=== PATIENT | male | born 1950 | race Hispanic/Latino ===

== ENCOUNTER 2018-07-16 22:45 | Emergency (ER) | payer OTHER ==
[2018-07-16] MEDS ORDERED: LIDOCAINE 1% 20 ML MDV ONE (23:12)
[2018-07-16] MEDS ORDERED: BUPIVACAINE 0.5% PF 10 ML VIAL ONE (23:12)
--- NOTE | 2018-07-17 00:15 | ER ---
[facility] Name: Ravinder Townsend Age: 67 yrs Sex: Male : 1950 Arrival Date: 07/16/2018 Time: 22:47 Bed 4 Private MD: Diagnosis: Laceration without foreign body of right hand-right ring finger tissue avulsion Presentation: 07/16 22:56 Presenting complaint: Patient states: "I was at the cook off and I was helping with a jd3 big truck and the back sliding door came down onto my finger.". Transition of care: patient was not received from another setting of care. Onset of symptoms was July 16, 2018. Risk Assessment: Do you want to hurt yourself or someone else? Patient reports no desire to harm self or others. Initial Sepsis Screen: Does the patient meet any 2 criteria? No. Patient's initial sepsis screen is negative. Does the patient have a suspected source of infection? No. Patient's initial sepsis screen is negative. Care prior to arrival: None. 22:56 Method Of Arrival: Ambulatory [facility] 22:56 Acuity: ANY 3 jd3 23:00 Note pt reported drinking 5-6 beers tonight. jd3 Triage Assessment: 23:11 Injury Description: Crush injury sustained to right hand is macerated right middle ak1 finger with laceration, bleeding controlled. was sustained 30-60 minutes ago. Historical: - Allergies: 22:59 GABAPENTIN; jd3 - Home Meds: 22:59 aspirin 81 mg Oral chew [Active]; jd3 - PMHx: 22:59 Cancer; jd3 - PSHx: 22:59 colon; stents in leg; jd3 - Immunization history:: Adult Immunizations up to date, Last tetanus immunization: < 5 years ago. - Social history:: Smoking status: Patient/guardian denies using tobacco, but has a distant history of tobacco abuse. - Ebola Screening: : Patient negative for fever greater than or equal to 101.5 degrees Fahrenheit, and additional compatible Ebola Virus Disease symptoms. Screenin:02 Abuse screen: Denies threats or abuse. Denies injuries from another. Nutritional ak1 screening: No deficits noted. Tuberculosis screening: No symptoms or risk factors identified. Fall Risk None identified. Assessment: 23:09 General: Appears uncomfortable, Behavior is calm, cooperative. Pain: Complains of pain ak1 in palmar aspect of distal phalanx of right ring finger and palmar aspect of distal phalanx of right middle finger Pain began 1 hour ago. Neuro: No deficits noted. Cardiovascular: No deficits noted. Respiratory: No deficits noted. GI: No signs and/or symptoms were reported involving the gastrointestinal system. : No signs and/or symptoms were reported regarding the genitourinary system. EENT: No signs and/or symptoms were reported regarding the EENT system. Derm: Wound noted palmar aspect of distal phalanx of right ring finger and palmar aspect of distal phalanx of right middle finger. Musculoskeletal: Range of motion: intact in all extremities, wound with bruising to right middle and right ring fingers. pt with laceration to right middle finger, bleeding controlled. 07/17 00:29 Reassessment: Patient appears in no apparent distress at this time. No changes from ak1 previously documented assessment. Patient and/or family updated on plan of care and expected duration. Pain level reassessed. Patient is alert, oriented x 3, equal unlabored respirations, skin warm/dry/pink. pt with tube gauze placed to affect finger. pt informed to keep sutures clean and dry. Vital Signs: 07/16 22:59 BP 135 / 98; Pulse 97; Resp 17 S; Temp 98.0(O); Pulse Ox 100% on R/A; Weight 100.7 kg jd3 (R); Height 5 ft. 10 in. (177.80 cm) (R); Pain 10/10; 23:11 BP 116 / 83; Pulse 89; Resp 18; Temp 98; Pulse Ox 97% on R/A; ak1 22:59 Body Mass Index 31.85 (100.70 kg, 177.80 cm) jd3 ED Course: 22:47 Patient arrived in ED. am2 22:57 Triage completed. jd3 23:00 Arm band placed on. jd3 23:02 Мария Olivo, RN is Primary Nurse. ak1 23:09 Patient has correct armband on for positive identification. Bed in low position. Call ak1 light in reach. Side rails up X 1. Adult w/ patient. Pulse ox on. NIBP on. 23:14 Kevin Mcnulty MD is Attending Physician. [facility] 07/17 00:09 Jac Oakes MD is Referral Physician. agnes 00:14 Assist provider with laceration repair on right hand that was 2.5 cm. or less using ak1 sutures. Set up tray. Performed by Kevin Mcnulty MD Dressed with 4X4s, Kerlix, Neosporin, Patient tolerated well. Patient did not have IV access during this emergency room visit. 01:46 Hand Right 3 View XRAY In Process Unspecified. EDMS Administered Medications: 07/16 23:47 Drug: Marcaine (0.5 %) 1 vials {Note: at bedside for Dr. Mcnulty .} Volume: 10 ml; ak1 Route: Infiltration; 23:47 Drug: Lidocaine (1 %) 1 vials {Note: at bedside for Dr. Mcnulty.} Volume: 20 ml; ak1 Route: Infiltration; 07/17 00:10 Drug: Neosporin Ointment 1 application Route: Topical; Site: affected area; ak1 00:10 Drug: [place] 10 mg-325 mg 1 tabs Route: PO; ak1 00:28 Follow up: Response: No adverse reaction ak1 00:13 Drug: Ancef 1 grams Route: IM; Site: left gluteus; ak1 00:28 Follow up: Response: No adverse reaction ak1 00:13 Drug: KeFLEX 500 mg Route: PO; ak1 00:28 Follow up: Response: No adverse reaction ak1 Outcome: 00:14 Discharge ordered by . [facility] 00:29 Discharged to home ambulatory, with family. ak1 00:29 Condition: good 00:29 Discharge instructions given to patient, family, Instructed on discharge instructions, follow up and referral plans. no drinking with medication, no driving heavy equipment, medication usage, wound care, Demonstrated understanding of instructions, follow-up care, medications, wound care, Prescriptions given X 2. 00:30 Patient left the ED. ak1 Signatures: Dispatcher [employer] EDMS Kevin Mcnulty MD MD cha Krenek, Amber RN RN ak1 Aury Rhoades Jonathon, RN RN [email or web address] Corrections: (The following items were deleted from the chart) 07/16 23:00 22:56 Presenting complaint: Patient states: "I was at the cook off and I was helping jd3 with a big truck and the back sliding door came down onto my finger." [place]
--- NOTE | 2018-07-17 00:16 | EDPHYS ---
Physician Documentation [facility] Name: Ravinder Townsend Age: 67 yrs Sex: Male : 1950 Arrival Date: 07/16/2018 Time: 22:47 Bed 4 Private MD: ED Physician Kevin Mcnulty HPI: 07/17 00:04 This 67 yrs old Male presents to ER via Ambulatory with complaints of Finger agnes Injury - laceration. 00:04 Trauma demographics: County: The injury occurred in [place]. Mechanism of injury: agnes Crush injury: from a car door. Associated injuries: The patient sustained right hand and palmar aspect of distal phalanx of right middle finger and palmar aspect of distal phalanx of right ring finger, decreased range of motion, laceration, painful injury, swelling. Onset: The symptoms/episode began/occurred just prior to arrival. The patient has not experienced similar symptoms in the past. Historical: - Allergies: 07/16 22:59 GABAPENTIN; jd3 - Home Meds: 22:59 aspirin 81 mg Oral chew [Active]; jd3 - PMHx: 22:59 Cancer; jd3 - PSHx: 22:59 colon; stents in leg; jd3 - Immunization history:: Adult Immunizations up to date, Last tetanus immunization: < 5 years ago. - Social history:: Smoking status: Patient/guardian denies using tobacco, but has a distant history of tobacco abuse. - Ebola Screening: : Patient negative for fever greater than or equal to 101.5 degrees Fahrenheit, and additional compatible Ebola Virus Disease symptoms. ROS: 07/17 00:05 Constitutional: Negative for fever, chills, and weight loss, Eyes: Negative for injury, agnes pain, redness, and discharge, ENT: Negative for injury, pain, and discharge, Neck: Negative for injury, pain, and swelling, Cardiovascular: Negative for chest pain, palpitations, and edema, Respiratory: Negative for shortness of breath, cough, wheezing, and pleuritic chest pain, Abdomen/GI: Negative for abdominal pain, nausea, vomiting, diarrhea, and constipation, Back: Negative for injury and pain, : Negative for injury, bleeding, discharge, and swelling, Skin: Negative for injury, rash, and discoloration, Neuro: Negative for headache, weakness, numbness, tingling, and seizure, Psych: Negative for depression, anxiety, suicide ideation, homicidal ideation, and hallucinations, Allergy/Immunology: Negative for hives, rash, and allergies, Endocrine: Negative for neck swelling, polydipsia, polyuria, polyphagia, and marked weight changes, Hematologic/Lymphatic: Negative for swollen nodes, abnormal bleeding, and unusual bruising. MS/extremity: Positive for decreased range of motion, pain, tenderness, of the right hand and palmar aspect of distal phalanx of right middle finger and palmar aspect of distal phalanx of right ring finger. Exam: 00:05 Constitutional: This is a well developed, well nourished patient who is awake, alert, agnes and in no acute distress. Head/Face: Normocephalic, atraumatic. Eyes: Pupils equal round and reactive to light, extra-ocular motions intact. Lids and lashes normal. Conjunctiva and sclera are non-icteric and not injected. Cornea within normal limits. Periorbital areas with no swelling, redness, or edema. ENT: Nares patent. No nasal discharge, no septal abnormalities noted. Tympanic membranes are normal and external auditory canals are clear. Oropharynx with no redness, swelling, or masses, exudates, or evidence of obstruction, uvula midline. Mucous membranes moist. Neck: Trachea midline, no thyromegaly or masses palpated, and no cervical lymphadenopathy. Supple, full range of motion without nuchal rigidity, or vertebral point tenderness. No Meningismus. Chest/axilla: Normal chest wall appearance and motion. Nontender with no deformity. No lesions are appreciated. Cardiovascular: Regular rate and rhythm with a normal S1 and S2. No gallops, murmurs, or rubs. Normal PMI, no JVD. No pulse deficits. Respiratory: Lungs have equal breath sounds bilaterally, clear to auscultation and percussion. No rales, rhonchi or wheezes noted. No increased work of breathing, no retractions or nasal flaring. Abdomen/GI: Soft, non-tender, with normal bowel sounds. No distension or tympany. No guarding or rebound. No evidence of tenderness throughout. Back: No spinal tenderness. No costovertebral tenderness. Full range of motion. Male : Normal genitalia with no discharge or lesions. Skin: Warm, dry with normal turgor. Normal color with no rashes, no lesions, and no evidence of cellulitis. Neuro: Awake and alert, GCS 15, oriented to person, place, time, and situation. Cranial nerves II-XII grossly intact. Motor strength 5/5 in all extremities. Sensory grossly intact. Cerebellar exam normal. Normal gait. Psych: Awake, alert, with orientation to person, place and time. Behavior, mood, and affect are within normal limits. 00:05 Musculoskeletal/extremity: Extremities: noted in the palmar aspect of distal phalanx of right ring finger: decreased ROM, deformity, laceration, pain, ROM: limited active range of motion due to pain, limited passive range of motion due to pain, Circulation is intact in all extremities. Sensation intact. Compartment Syndrome exam of affected extremity: is normal. ring finger , tissue missing. Vital Signs: 07/16 22:59 BP 135 / 98; Pulse 97; Resp 17 S; Temp 98.0(O); Pulse Ox 100% on R/A; Weight 100.7 kg jd3 (R); Height 5 ft. 10 in. (177.80 cm) (R); Pain 10/10; 23:11 BP 116 / 83; Pulse 89; Resp 18; Temp 98; Pulse Ox 97% on R/A; ak1 22:59 Body Mass Index 31.85 (100.70 kg, 177.80 cm) jd3 Laceration: 07/17 00:07 Wound Repair of 1.5cm ( 0.6in ) subcutaneous laceration to right hand and palmar aspect agnes of distal phalanx of right ring finger. Skin/tissue flap noted.. tissue missing. Distal neuro/vascular/tendon intact. Anesthesia: Digital block administered with 5 mls of 1% lidocaine, Local anesthetic administered with 5 mls of 0.5% marcaine. Wound prep: Moderate cleansing by me, Copious irrigation. Skin closed with 5 5-0 Prolene using interrupted sutures and sterile technique. Dressed with Neosporin, pressure dressing, non-adherent dressing. Patient tolerated well. MDM: 07/16 23:14 Patient medically screened. [facility] 07/17 00:05 Data reviewed: vital signs, nurses notes, radiologic studies, plain films. [facility] 07/16 23:04 Order name: Hand Right 3 View XRAY 07/17 00:03 Order name: Suture Tray at Bedside; Complete Time: 00:05 agnes 07/17 00:03 Order name: Wound Care; Complete Time: 00:05 [facility] Administered Medications: 07/16 23:47 Drug: Marcaine (0.5 %) 1 vials {Note: at bedside for Dr. Mcnulty .} Volume: 10 ml; ak1 Route: Infiltration; 23:47 Drug: Lidocaine (1 %) 1 vials {Note: at bedside for Dr. Mcnulty.} Volume: 20 ml; ak1 Route: Infiltration; 07/17 00:10 Drug: Neosporin Ointment 1 application Route: Topical; Site: affected area; ak1 00:10 Drug: [place] 10 mg-325 mg 1 tabs Route: PO; ak1 00:28 Follow up: Response: No adverse reaction ak1 00:13 Drug: Ancef 1 grams Route: IM; Site: left gluteus; ak1 00:28 Follow up: Response: No adverse reaction ak1 00:13 Drug: KeFLEX 500 mg Route: PO; ak1 00:28 Follow up: Response: No adverse reaction ak1 Disposition: 07/17/18 00:14 Discharged to Home. Impression: Laceration without foreign body of right hand - right ring finger tissue avulsion. - Condition is Stable. - Discharge Instructions: Laceration Care, Adult, Laceration Care, Adult, [id number]. - Prescriptions for Keflex 500 mg Oral Capsule - take 1 capsule by ORAL route every 6 hours for 10 days; 40 capsule. Tylenol- Codeine #3 300-30 mg Oral Tablet - take 2 tablet by ORAL route every 6 hours As needed; 30 tablet. - Medication Reconciliation Form, Thank You Letter, Antibiotic Education, Prescription Opioid Use form. - Follow up: Private Physician; When: 2 - 3 days; Reason: Recheck today's complaints, Continuance of care, Re-evaluation by your physician. Follow up: Jac Oakes MD; When: 2 - 3 days; Reason: Recheck today's complaints, Re-evaluation by your physician. - Problem is new. - Symptoms have improved. Signatures: Dispatcher [employer] EDMS Kevin Mcnulty MD MD cha Chretien, Felicia, RN RN fc Krenek, Amber RN RN ak1 Tyler Otero RN RN jd3 Corrections: (The following items were deleted from the chart) 00:30 00:14 07/17/2018 00:14 Discharged to Home. Impression: Laceration without foreign body ak1 of right hand - right ring finger tissue avulsion. Condition is Stable. Forms are Medication Reconciliation Form, Thank You Letter, Antibiotic Education, Prescription Opioid Use. Follow up: Private Physician; When: 2 - 3 days; Reason: Recheck today's complaints, Continuance of care, Re-evaluation by your physician. Follow up: Jac Oakes; When: 2 - 3 days; Reason: Recheck today's complaints, Re-evaluation by your physician. Problem is new. Symptoms have improved. agnes
[2018-07-17] MEDS ORDERED: CEFAZOLIN SODIUM 1 GM/VIAL ONE (00:19)
[2018-07-17] MEDS ORDERED: WATER FOR INJ,STERILE 10 ML ONE (00:20)
[2018-07-17] MEDS ORDERED: CEPHALEXIN 250 MG CAP ONE (00:20)
[2018-07-17] MEDS ORDERED: BACI/NEOMYCIN/POLY OINT 15GM TOP ONE (00:22)
[2018-07-17] MEDS ORDERED: HYDROCODONE/APAP 10/325 TAB ONE (00:23)
--- NOTE | 2018-07-17 10:05 | RAD REPORT ---
EXAM DESCRIPTION: RAD - Hand Right 3 View - 07/17/2018 1:45 am CLINICAL HISTORY: Right hand pain status post injury FINDINGS: No fracture or dislocation is seen. Soft tissue laceration involves region of the fourth distal phalanx
== END 2018-07-17 00:30 | disposition home or self-care (01) ==
LOC: ER 22:45
PROC: 0JQJ0ZZ Repair Right Hand Subcutaneous Tissue and Fascia, Open Approach (ICD-10-PCS; principal; 2018-07-16)
DX: S61.214A Laceration without foreign body of right ring finger without damage to nail, initial encounter (principal); W23.0XXA Caught, crushed, jammed, or pinched between moving objects, initial encounter; Z79.82 Long term (current) use of aspirin; Z87.891 Personal history of nicotine dependence
CPT/HCPCS: 73130; 96372; 99284; 12001; J0690